=== PATIENT | female | born 1975 | race Asian ===

== ENCOUNTER 2023-01-18 11:39 | Emergency (ER) | payer SELFPAY ==
[2023-01-18] MEDS ORDERED: ACETAMINOPHEN 325 MG TABLET (FP) PO ONE (12:13)
[2023-01-18 12:44] VITALS: RESP 18; BMI 26.5
[2023-01-18 14:21] VITALS: BP 139/82; PULSE 80; TEMP 98.6
== END 2023-01-18 14:21 | disposition home or self-care (01) ==
LOC: JER 11:39
DX: S00.83XA Contusion of other part of head, initial encounter (principal); R51.9 Headache, unspecified; W21.04XA Struck by golf ball, initial encounter
CPT/HCPCS: 70450-TC; 70486-TC; 99284-25